=== PATIENT | female | born 1980 | race Hispanic/Latino ===

== ENCOUNTER 2017-06-02 13:29 | Emergency (ER) | payer MEDICAID, SELFPAY ==
[2017-06-02 13:59] LABS: #Basophils 0.1 thou/uL (0.0-0.2); #Eosinphils 0.1 thou/uL (0.0-0.7); #Lymphocytes 2.4 thou/uL (1.20-3.40); #Monocytes 0.6 thou/uL (0.11-0.59); #Neutrophils 6.7 thou/uL (1.40-6.50); %Eosinophils 0.9 % (0.0-10.0); %Lymphocytes 24.5 % (21.0-51.0); %Monocytes 5.9 % (0.0-10.0); %Neutrophils 67.6 % (42.0-75.0); Hemoglobin 13.2 g/dL (12.0-16.0); Mean Corpuscular HGB CONC 33.7 g/dL (32.0-36.0); Mean Corpuscular Hemoglobin 29.6 pg (27.0-31.0); Mean Corpuscular Volume 87.8 fl (81.0-99.0); Mean Platelet Volume 7.9 fL (7.4-10.4); Platelet Count 304 thou/uL (130-400); RBC Distribution Width 12.4 % (11.5-14.5); Red Blood Cell (RBC) Count 4.47 mill/uL (4.20-5.40); White Blood Cell (WBC) Count 9.9 thou/uL (4.8-10.8)
[2017-06-02 14:43] LABS: Bilirubin Negative (Negative); Blood, Urine Moderate (Negative); Clarity CLEAR (Clear); Glucose, Urine (Dipstick) Negative (Negative); Leukocyte Negative (Negative); Nitrite Negative (Negative); Protein, Urine (Dipstick) Negative (Neg-Trace); Urobilinogen 0.2 mg/dL (0.2-1.0)
[2017-06-02 14:52] LABS: Bacteria/HPF Rare-Few HPF (None Seen); Hyaline Casts/LPF 0-3 HYALINE CAST LPF (0-3 Hyaline); Pathc Cast-AUWi Flag 0.67 (0-2.49); Squamous Epithelial 0-3 HPF (0-3); WBC/HPF None Seen HPF (0-3)
[2017-06-02 14:53] LABS: Yeast-AUWi Flag 30.4 (0-25.0)
[2017-06-02 15:05] LABS: Yeast-All Forms None Seen HPF (None Seen)
--- NOTE | 2017-06-02 16:15 | ULT ---
EXAM: PELVIC ULTRASOUND 06/02/17 HISTORY: 5 week patient. Vaginal bleeding, since Wednesday. HCG is 109.72. COMPARISON: None. TECHNIQUE: Transabdominal and endovaginal imaging of the pelvis is performed. The ovaries are interrogated with rojas scale, color flow, doppler imaging with spectral waveform analysis. FINDINGS: The uterus is identified measuring 3.5 x 8.0 x 4.2 cm. Endometrium has a diameter of 0.6 cm. No sonog raphic evidence of a gestational sac, yolk sac, or pole. Right ovary has a normal echotexture measuring 3.6 x 1.6 x 2.4 cm. Right ovary has a normal echotextu re measuring 2.8 x 2.2 x 1,8 cm. There is no free fluid. Incidental Nabothian cyst is noted. OVARIAN DOPPLER: Vascular flow to left and right ovary. IMPRESSION: No sonographic evidence of a gestational sac, yolk sac or pole. Differential considerations inc lude a missed spontaneous versus an early intrauterine versus a sonographically oc cult ectopic . Followup ultrasound and serial beta HCGs are recommended. POS: [facility]
== END 2017-06-02 16:28 | disposition home or self-care (01) ==
LOC: ERS 13:29
DX: O20.9 Hemorrhage in early pregnancy, unspecified (principal); Z3A.01 Less than 8 weeks gestation of pregnancy
CPT/HCPCS: 36415; 76856; 81003; 81015; 84702; 85025

== ENCOUNTER 2018-06-09 12:46 | Emergency (ER) | payer SELFPAY ==
[2018-06-09 13:10] LABS: #Eosinphils 0.2 thou/uL (0.0-0.7); #Lymphocytes 2.7 thou/uL (1.20-3.40); #Monocytes 0.9 thou/uL (0.11-0.59); #Neutrophils 10.4 thou/uL (1.40-6.50); %Basophils 0.3 % (0.0-1.0); %Eosinophils 1.5 % (0.0-10.0); %Lymphocytes 18.7 % (21.0-51.0); %Monocytes 6.4 % (0.0-10.0); %Neutrophils 73.1 % (42.0-75.0); Hemoglobin 12.6 g/dL (12.0-16.0); Mean Corpuscular HGB CONC 32.8 g/dL (32.0-36.0); Mean Corpuscular Hemoglobin 28.9 pg (27.0-31.0); Mean Corpuscular Volume 88.2 fL (78.0-98.0); Mean Platelet Volume 7.7 fL (7.4-10.4); Platelet Count 303 thou/uL (130-400); RBC Distribution Width 12.6 % (11.5-14.5); Red Blood Cell (RBC) Count 4.34 mill/uL (4.20-5.40); White Blood Cell (WBC) Count 14.2 thou/uL (4.8-10.8)
[2018-06-09 13:59] LABS: Bilirubin Negative (Negative); Blood, Urine Trace (Negative); Clarity CLEAR (Clear); Glucose, Urine (Dipstick) Negative (Negative); Leukocyte Negative (Negative); Nitrite Negative (Negative); Protein, Urine (Dipstick) Negative (Neg-Trace); Specific Gravity, Urine 1.007 (1.002-1.036); Urobilinogen 0.2 mg/dL (0.2-1.0); pH, Urine 5.5 (5.0-9.0)
[2018-06-09 14:00] LABS: Bacteria/HPF None Seen HPF (None Seen); Hyaline Casts/LPF 0-3 HYALINE CAST LPF (0-3 Hyaline); Pathc Cast-AUWi Flag 0.29 (0-2.49); Squamous Epithelial 0-3 HPF (0-3); WBC/HPF None Seen HPF (0-3)
--- NOTE | 2018-06-09 14:48 | ULT ---
ULTRASOUND PELVIC TRANSVAGINAL WITH DOPPLER: Date: 06/09/18 HISTORY: Vaginal bleeding. COMPARISON: Ultrasound pelvis dated 06/02/18. FINDINGS: Real-time Dinh scale and color Doppler and spectral analysis of pelvis performed transabdominal and t ransvaginal approach. The patient's HCG is noted to 5,180, per the technologist. Uterus measures 9.1 x 4.0 x 5.9 cm. Endometrial thickness measures 1.0 cm. No intrauterine gestationa l sac is appreciated. Right ovary measures 4.3 x 3.5 x 2.8 cm, with a 2.5 cm corpus luteal cyst. Left ovary measures 2.8 x 2.4 x 1.4 cm. No intrauterine is visualized. IMPRESSION: With the HCG over 5,000, this is a of unknown location. No intrauterine is apprec iated. Close follow-up HCG and ultrasound recommended. POS: [facility]
--- NOTE | 2018-06-09 16:54 | PDOC.EVN ---
Event Note - Event Note Event Note: OBGYN Faculty Note: ED phone call: I was just contacted (about 10 minutes ago) by the Resident in the ED, under Dr Pozo. Ms Johnston is a 37 yo with on/off VB for last 3 days with EGA of 5 weeks by her LMP with a BHCG of 5000. Sono with no IUP and possible CL ovarian cyst. No free fluid in sono Lab: RH pos, HCT 38 DX is of unknown location. As EGA is only 5 weeks by LMP, and no prior ectopic HX (one term CS and one prior SAB at 5 weeks), and as hemodynamically stable, I have requested follow up in 24 hours with ANY available OBGYNs ([facility], [facility], etc). Case reviewed on the phone with the resident. Evaluating MD felt patient was stable and did not require urgent eval by me at this time. case noted.
== END 2018-06-09 17:24 | disposition home or self-care (01) ==
LOC: ERS 12:46
DX: O36.80X0 Pregnancy with inconclusive fetal viability, not applicable or unspecified (principal); Z3A.01 Less than 8 weeks gestation of pregnancy
CPT/HCPCS: 36415; 76856; 81003; 81015; 84702; 85025; 86900; 86901

== ENCOUNTER 2018-06-28 08:11 | Outpatient (CLI) | payer OTHER ==
--- NOTE | 2018-06-28 10:24 | MRI ---
MRI PELVIS WITHOUT CONTRAST MRI PELVIC WITHOUT CONTRAST: HISTORY: Evaluate for interstitial versus an angular . COMPARISON: Ultrasound 06/09/2018. FINDINGS: There is a small posterior fundal fibroid which is subsclerosal measuring a centimeter in size. The uterus has an arcuate formation. There is a maternal right-sided angular . No interstitial . The does ext end into the normal endometrial cavity. There are a few nabothian cysts of the cervix. There appears to be an anterior lower uterine C-secti on scar separate from the intrauterine . Normal-appearing right ovarian cysts are present. No significant free fluid in the pelvis. IMPRESSION: Arcuate uterus with a right angular extending into the endometrial cavity. No interstitial . POS: [facility]
== END 2018-06-28 08:12 | disposition home or self-care (01) ==
LOC: MRI 08:11
PROVIDERS: ATTEND Obstetrics & Gynecology
DX: Z34.90 Encounter for supervision of normal pregnancy, unspecified, unspecified trimester (principal); Z3A.00 Weeks of gestation of pregnancy not specified
CPT/HCPCS: 72195

== ENCOUNTER 2019-01-12 04:56 | Inpatient (IN) | payer OTHER ==
--- NOTE | 2019-01-11 20:29 | PDOC.LDHP ---
Labor and Delivery H&P Chief complaint: scheduled section HPI: 38 yo @ 36w0d by 5 week CRL who presents for RCS due to right Angular with arcuate uterus. and prior CS x1. Pt received BMTZ course for FLM Current gestational age (weeks): 36 Due date: 02/09/19 Dating criteria: first trimester ultrasound Grav: 3 Para: 1 OB History Details: 1 term CS 1 SAB Current complications: other (Right angular Arcuate uterus) Abnormal US findings: Yes (Angular ) Past Medical History: Denies Current medications: pre-natalia vitamins Previous surgical history: low tranverse CS Allergies/Adverse Reactions: Allergies Allergy/AdvReac Type Severity Reaction Status Date / Time No Known Allergies Allergy Verified 01/12/19 05:39 Social history: none - Physical Exam Vital signs reviewed and normal: yes General: NAD Heart: RRR Lungs: nonlabored breathing Abdomen: gravid Extremeties: no edema FHT: category 1 (150s, mod kimberly, +accles, no decels) [place] contractions every: no ctx - OB Labs Blood type: O RH: positive Antibody Screen: negative HIV: negative RPR: negative HEPSAg: negative 1 hour GCT: negative GBS: negative Urine drug screen: negative Rubella: immune Additional Labs: NIPT and msAFP wnl Carrier screening wnl - Assessment 36w0d IUP Right angular with arcuate uterus CSx1 AMA Anemia - Plan Plan: to OR for section, informed consent obtained, anesthesia consult for pain management
[2019-01-12] MEDS ORDERED: Acetaminophen 500 MG TAB PO PRN (05:18)
[2019-01-12] MEDS ORDERED: Ondansetron PF 4 MG/2 ML Vial IVP PRN ×2 (05:18→08:49)
[2019-01-12] MEDS ORDERED: hydrALAZINE 20 MG/ML VIAL SLOW IVP PRN ×2 (05:18→11:30)
[2019-01-12] MEDS ORDERED: Promethazine HCl 25 MG/ML VIAL IM PRN ×2 (05:18→08:49)
[2019-01-12] MEDS ORDERED: Butorphanol Tartrate 1 MG/ML VIAL SLOW IVP PRN (05:18)
[2019-01-12 05:37] VITALS: BMI 32.3
[2019-01-12] MEDS ORDERED: Bicitra 30 ML UDCUP PO SCH (05:45)
[2019-01-12] MEDS ORDERED: CEFAZOLIN 2 GM in Premix Bag 1 BAG IVPB SCH (05:45)
[2019-01-12] MEDS: Lactated Ringer's 1,000 ML IV SCH ×2 (05:46→17:24)
[2019-01-12 05:54] LABS: Hemoglobin 11.2 g/dL (12.0-16.0); Mean Corpuscular HGB CONC 34.2 g/dL (32.0-36.0); Mean Corpuscular Hemoglobin 27.8 pg (27.0-31.0); Mean Corpuscular Volume 81.3 fL (78.0-98.0); Mean Platelet Volume 9.1 fL (7.4-10.4); Platelet Count 238 thou/uL (130-400); RBC Distribution Width 14.7 % (11.5-14.5); Red Blood Cell (RBC) Count 4.04 mill/uL (4.20-5.40); White Blood Cell (WBC) Count 12.3 thou/uL (4.8-10.8)
[2019-01-12 06:35] LABS: HBSAg Index 0.15 S/CO (0-0.99); HIV (1/2) Antibody/Antigen Non-Reactive (NonReactive); HIV 1/2 INDEX 0.07 S/CO (<1.00); Hep B Surf Ag Non-Reactive S/CO (NonReactive)
[2019-01-12] MEDS ORDERED: MORPHINE 5 MG/10 ML PF VIAL ONE (07:14)
[2019-01-12] MEDS ORDERED: Oxytocin 10 UNITS/ML VIAL ONE (07:15)
[2019-01-12] MEDS ORDERED: ePHEDrine/0.9% NaCl/PF SYRINGE 50 mg/10 ml ONE (07:15)
[2019-01-12] MEDS ORDERED: Ondansetron PF 4 MG/2 ML Vial ONE ×2 (07:15→13:12)
[2019-01-12 07:41] LABS: Syphilis Antibody Nonreactive (Nonreactive); Syphilis Antibody Index 0.02 S/CO (<1.00 Non-Reactive)
--- NOTE | 2019-01-12 08:42 | PDOC.OPDEL ---
OB Operative/Delivery Note Delivery Dr/Surgeon: Jeny Jenkins DO Assist: Jagdeep Rogers MD Pre-Delivery Diagnosis: scheduled section (36 week IUP Angular Prior CS x1) Procedure/Post Delivery Dx: repeat low transverse CS Weeks gestation: 36 Anesthesia: spinal - Findings A Sex: male - 1 min: 8 - 5 min: 8 - Additional Findings/Plan Placenta delivered: spontaneous findings: low transverse hysterotomy without extension, normal tubes, normal ovaries, other (Thin posterior myometrium near initial implantation site. Velementous cord insertion on placenta) Estimated blood loss: QBL 505 cc Compilations/Other Findings: None Post delivery plan: routine recovery (Dictation # [id number])
[2019-01-12] MEDS ORDERED: HYDROmorphone 2 MG/ML VIAL SLOW IVP PRN (08:48)
[2019-01-12] MEDS ORDERED: L&D-Morphine 4 MG/ML VIAL SLOW IVP PRN (08:48)
[2019-01-12] MEDS ORDERED: Meperidine HCl/PF 25 MG/ML VIAL SLOW IVP PRN (08:48)
[2019-01-12] MEDS ORDERED: Ondansetron HCl/PF 4 MG/2 ML Vial IVP PRN (08:48)
[2019-01-12] MEDS ORDERED: Promethazine HCl 25 MG SUPP PR PRN (08:49)
[2019-01-12] MEDS ORDERED: Naloxone HCl 0.4 mg/ml Vial IVP PRN ×2 (08:49)
[2019-01-12] MEDS ORDERED: Naloxone HCl 0.4 mg/ml Vial IV PRN (08:49)
[2019-01-12] MEDS ORDERED: diphenhydrAMINE 50 MG/ML VIAL IVP PRN (08:49)
[2019-01-12] MEDS ORDERED: Communication Order-Pharmacy FS SCH (09:00)
[2019-01-12] MEDS ORDERED: Ketorolac Tromethamine 30 MG/ML VIAL IVP SCH (09:00)
[2019-01-12] MEDS ORDERED: Meperidine HCl/PF 25 MG/ML VIAL ONE (09:16)
[2019-01-12] MEDS ORDERED: Methylergonovine 0.2 MG/ML VIAL IM PRN (11:30)
[2019-01-12] MEDS ORDERED: Misoprostol 200 MCG TAB PR PRN (11:30)
[2019-01-12] MEDS ORDERED: Acetaminophen 325 MG TAB PO PRN (11:30)
[2019-01-12] MEDS ORDERED: diphenhydrAMINE 25 MG CAP PO PRN (11:30)
[2019-01-12] MEDS ORDERED: Lanolin Ointment 7 GM TUBE TOP PRN (11:30)
[2019-01-12] MEDS: Ketorolac Tromethamine 30 MG/ML VIAL IVP PRN ×2 (11:50→20:26)
[2019-01-12] MEDS ORDERED: Morphine 2 MG/ML SYRINGE SLOW IVP SCH ×2 (13:00→15:45)
[2019-01-12] MEDS ORDERED: ePHEDrine 50 MG/ML VIAL ONE (13:12)
[2019-01-12] MEDS: Simethicone Chewable 80 MG TAB PO PRN (15:49)
[2019-01-12] MEDS: Ibuprofen 800 MG TAB PO SCH (15:49)
[2019-01-12] MEDS: HYDROcodone/Acetaminophen 5/325 mg Tablet PO PRN (20:24)
[2019-01-12] MEDS: Docusate Calcium (SURFAK) 240 MG CAP PO SCH (20:24)
[2019-01-13] MEDS: HYDROcodone/Acetaminophen 5/325 mg Tablet PO PRN ×5 (00:29→21:37)
[2019-01-13] MEDS: Ferrous Sulfate 325 MG TAB PO SCH ×3 (00:30→19:07)
[2019-01-13] MEDS: Lactated Ringer's 1,000 ML IV SCH ×5 (00:36→19:54)
[2019-01-13] MEDS: Ibuprofen 800 MG TAB PO SCH ×4 (00:37→21:02)
[2019-01-13 05:17] LABS: #Monocytes 0.9 thou/uL (0.11-0.59); #Neutrophils 11.7 thou/uL (1.40-6.50); %Basophils 0.2 % (0.0-1.0); %Eosinophils 0.3 % (0.0-10.0); %Lymphocytes 13.7 % (21.0-51.0); %Monocytes 5.8 % (0.0-10.0); Hemoglobin 10.2 g/dL (12.0-16.0); Mean Corpuscular HGB CONC 33.7 g/dL (32.0-36.0); Mean Corpuscular Hemoglobin 27.7 pg (27.0-31.0); Mean Corpuscular Volume 82.1 fL (78.0-98.0); Mean Platelet Volume 9.3 fL (7.4-10.4); Platelet Count 201 thou/uL (130-400); RBC Distribution Width 14.6 % (11.5-14.5); Red Blood Cell (RBC) Count 3.68 mill/uL (4.20-5.40); White Blood Cell (WBC) Count 14.7 thou/uL (4.8-10.8)
[2019-01-13] MEDS: Prenatal Vitamin 1 TAB PO SCH (09:08)
[2019-01-13] MEDS: Docusate Calcium (SURFAK) 240 MG CAP PO SCH ×2 (09:08→21:01)
--- NOTE | 2019-01-13 09:20 | OP ---
DATE OF PROCEDURE: 01/12/2019 PREOPERATIVE DIAGNOSES: 1. Thirty-six week, zero day intrauterine . 2. Angular . 3. Arcuate uterus. 4. Previous delivery x1. 5. Advanced maternal age. POSTOPERATIVE DIAGNOSES: 1. Thirty-six week, zero day intrauterine . 2. Angular . 3. Arcuate uterus. 4. Previous delivery x1. 5. Advanced maternal age. PROCEDURE PERFORMED: Repeat low-transverse delivery via Pfannenstiel skin incision. SURGEON: Jeny Jenkins DO OPERATION AGENT: Jagdeep Rogers MD COMPLICATIONS: None. ANESTHESIA: Spinal. QBL: 505 mL. IV FLUIDS: 1100 mL. URINARY OUTPUT: 400 mL. INDICATIONS FOR PROCEDURE: Ms. Brittni Kumar is a 38-year-old, G3, P1, at 36 weeks and 0 days, who presents for repeat delivery. Her antepartum course has been complicated by an angular , arcuate uterus, previous delivery x1, and advanced maternal age. Due to the angular and risk for uterine rupture if labor occurs, Maternal Medicine recommended delivery between 36 to 37 weeks. The patient was given betamethasone course for lung maturity and was scheduled for repeat delivery at 36 weeks gestation. FINDINGS: Dense scar along the fascia and rectus muscle. Thin adhesions from the dome of the bladder to the lower uterine segment. Thin lower uterine segment. Clear amniotic fluid. Viable male infant in cephalic presentation. Apgars 8/8/9. Velamentous cord insertion noted on placenta. Uterus with a thin posterior myometrium noted, which is where the initial implantation site was along the right aspect of the uterus. Otherwise, normal in appearance. Thin myometrium posterior aspect of the uterus. Arcuate uterus. DESCRIPTION OF PROCEDURE: The patient was brought to the operating room. She was placed under spinal anesthesia. She was placed in supine position with a leftward tilt. She was given 2 g of Ancef for surgical prophylaxis. She was prepped and draped in sterile fashion. An official time-out was performed. Anesthesia was assessed and proven to be adequate. The previous Pfannenstiel scar was removed, which was excised. The incision was carried down to the level of the fascia. The fascia was then incised and extended bilaterally using Jerez scissors. The superior aspect of the fascial incision was grasped using Amelia clamps and dissected free from the underlying rectus abdominis muscles. Then same was performed to the inferior aspect of fascial incision. There was some thick adhesions from the fascia to the rectus abdominis muscles. The rectus was then grasped and elevated using Allis clamps. The midline was incised using the scalpel due to the dense scar tissue until the peritoneal cavity was identified. The incision was then extended inferiorly using Jerez scissors in multiple layers, and then, the incision was extended using blunt dissection. There were thin adhesions to the bladder, which were both sharply and bluntly dissected. The Bob O retractor was then placed into the abdomen. A low-transverse hysterotomy was made using the scalpel and extended using blunt and sharp dissection. The amniotic membranes were ruptured and clear amniotic fluid. Infant was delivered in cephalic presentation. The infant's cord was clamped and cut. The was handed to the waiting neonatology team. Cord blood was obtained. The placenta was then delivered manually intact noted in posterior location. On the placenta, it was noted to have a velamentous cord insertion, which was not diagnosed antenatally and the uterus was then exteriorized from the abdomen for evaluation due to the angular . The myometrium on the posterior aspect was noted to be very thin, especially along the right aspect of the uterus. She had a small fibroid as well on the fundus of the uterus approximately 2 cm. The uterine cavity was also palpated and appreciated arcuate shape, which was documented on MRI. The uterus was then cleared of all clot and debris. The uterus placed back into the abdomen. The hysterotomy was closed in a running locking fashion using one Monocryl suture. The pelvis was irrigated and cleared of all clot and debris. The ovaries and fallopian tubes had been evaluated and appeared normal. The Bob O retractor was then removed from the abdomen. The peritoneum was closed in a running fashion using 3-0 chromic. The rectus abdominis muscles were evaluated and hemostatic with the use of the Bovie. The fascia was closed in a running fashion using 0 PDS. The subcutaneous layer was copiously irrigated and hemostatic. with the Bovie. The subcutaneous layer was closed using 3-0 Vicryl and the skin was closed using 4-0 Monocryl and Dermabond. The patient tolerated the procedure well. There were no complications. All counts were correct x3. The infant was then transferred to the nursery, however, is being monitored due to initial lack of respiratory drive. The mother will be transferred to routine recovery. Job ID: [id number] MTDD
[2019-01-13] MEDS: Simethicone Chewable 80 MG TAB PO PRN ×2 (11:08→21:02)
--- NOTE | 2019-01-13 12:20 | PDOC.PP ---
Post Progress Note Post Day #: 1 Subjective: Moderate pain improved with oral meds. Minimal lochia. Pumping- in NICU. Voiding. PO intake tolerated: yes Flatus: yes Ambulation: yes Vital Signs (12 hours) Temp Pulse Resp BP Pulse Ox 01/13/19 11:21 98.3 F 84 20 115/66 01/13/19 08:07 98.8 F 88 20 118/72 95 01/13/19 08:00 95 01/13/19 03:45 98.9 F 67 16 116/72 01/13/19 00:25 98.6 F 71 16 117/61 Weight Weight 200 lb - Physical Examination General: NAD Cardiovascular: RRR Respiratory: non-labored breathing Abdominal: no distention, appropriately TTP Fundus firm & at: below umbilicus Extremities: negative homans (B) Skin: CS incision dry & intact, no rash Neurological: no gross focal deficits Psychiatric: A&Ox3, normal affect Result Diagrams: 01/13/19 04:52 Additional Labs: Post Labs Blood Type O POSITIVE 01/12/19 05:42 Hep Bs Antigen Non-Reactive S/CO (NonReactive) 01/12/19 05:42 (1) delivery delivered Code(s): O82 - ENCOUNTER FOR DELIVERY WITHOUT INDICATION Status: Acute (2) Anemia Code(s): D64.9 - ANEMIA, UNSPECIFIED Status: Acute Qualifiers: Other causes of anemia: acute posthemorrhagic - Assessment/Plan PPD1 VSSAF Fe supplement. Continue PP care plan for d/c 1-2 days, infant in NICU currently due to TTN/RDS due to prematurity
[2019-01-14] MEDS: HYDROcodone/Acetaminophen 5/325 mg Tablet PO PRN ×5 (01:59→20:48)
[2019-01-14] MEDS: Ibuprofen 800 MG TAB PO SCH ×3 (05:00→21:17)
--- NOTE | 2019-01-14 07:30 | PDOC.PP ---
Post Progress Note Post Day #: 2 Subjective: Doing well this morning, no complaints. Pain well controlled. PO intake tolerated: yes Flatus: yes Ambulation: yes Vital Signs (12 hours) Temp Pulse Resp BP Pulse Ox 01/14/19 05:00 98.6 F 76 16 131/75 01/13/19 23:00 98.7 F 80 16 127/66 01/13/19 20:51 99.1 F 86 16 115/68 95 Weight Weight 200 lb - Physical Examination General: NAD Respiratory: non-labored breathing Abdominal: lochia (normal), no distention, appropriately TTP Fundus firm & at: below umbilicus Skin: CS incision dry & intact, no rash Neurological: no gross focal deficits Psychiatric: A&Ox3, normal affect Result Diagrams: 01/13/19 04:52 Additional Labs: Post Labs Blood Type O POSITIVE 01/12/19 05:42 Hep Bs Antigen Non-Reactive S/CO (NonReactive) 01/12/19 05:42 (1) Angular Code(s): O00.80 - OTHER ECTOPIC WITHOUT INTRAUTERINE Status: Acute (2) delivery delivered Code(s): O82 - ENCOUNTER FOR DELIVERY WITHOUT INDICATION Status: Acute - Assessment/Plan Continue routine postop care. Baby in NICU, d/c tomorrow.
[2019-01-14] MEDS: Prenatal Vitamin 1 TAB PO SCH (10:01)
[2019-01-14] MEDS: Docusate Calcium (SURFAK) 240 MG CAP PO SCH ×2 (10:04→21:17)
[2019-01-14] MEDS: Ferrous Sulfate 325 MG TAB PO SCH ×2 (10:05→21:16)
[2019-01-14] MEDS: Lactated Ringer's 1,000 ML IV SCH ×2 (14:20→21:17)
--- NOTE | 2019-01-15 01:31 | PDOC.PP ---
Post Progress Note Post Day #: 3 Subjective: No overnight events. Feeling well. Pain well controlled with meds. Ambulating. is going well. PO intake tolerated: yes Flatus: yes Ambulation: yes Vital Signs (12 hours) Temp Pulse Resp BP Pulse Ox 01/14/19 21:05 98.2 F 101 H 20 113/61 96 01/14/19 16:09 98.3 F 86 14 126/70 Weight Weight 90.718 kg - Physical Examination General: NAD Cardiovascular: no m/r/g, RRR Respiratory: clear to auscultation bilaterally, non-labored breathing Abdominal: + bowel sounds, appropriately TTP Fundus firm & at: below umbilicus Skin: CS incision dry & intact Neurological: no gross focal deficits Psychiatric: A&Ox3, normal affect Result Diagrams: 01/13/19 04:52 Additional Labs: Post Labs Blood Type O POSITIVE 01/12/19 05:42 Hep Bs Antigen Non-Reactive S/CO (NonReactive) 01/12/19 05:42 - Assessment/Plan 38yo delivered via rLTCS at 36wks sIUP, delivered - Continue routine PP care - D/c home today Sumaya Del Rosario MD PGY-2 Pt was discussed with Dr Hannah who agrees with the documentation and plan Addendum - Attending - Attending Attestation Date/Time: 01/15/19826 I personally evaluated the patient and discussed the management with Dr. Del Rosario. I agree with the Assessment and Plan documented above.
[2019-01-15] MEDS: Ibuprofen 800 MG TAB PO SCH ×3 (05:48→21:38)
[2019-01-15] MEDS: Lactated Ringer's 1,000 ML IV SCH ×3 (09:25→21:21)
[2019-01-15] MEDS: Prenatal Vitamin 1 TAB PO SCH (09:25)
[2019-01-15] MEDS: Docusate Calcium (SURFAK) 240 MG CAP PO SCH ×2 (09:25→21:38)
[2019-01-15] MEDS: HYDROcodone/Acetaminophen 5/325 mg Tablet PO PRN ×2 (09:26→17:56)
[2019-01-15] MEDS: Ferrous Sulfate 325 MG TAB PO SCH ×2 (09:28→21:21)
--- NOTE | 2019-01-15 12:24 | PDOC.EVN ---
Event Note - Event Note Event Note: Notified that baby will stay until tomorrow to recheck "car seat test". We will cancel DC order tonany and nani for possible DC tomorrow
[2019-01-16] MEDS: HYDROcodone/Acetaminophen 5/325 mg Tablet PO PRN (00:21)
[2019-01-16] MEDS: Ibuprofen 800 MG TAB PO SCH (05:22)
[2019-01-16] MEDS: Lactated Ringer's 1,000 ML IV SCH (05:23)
--- NOTE | 2019-01-16 07:48 | PDOC.PP ---
Post Progress Note Post Day #: 4 Subjective: Pt doing well this am. No symptoms or complaints. Minimal lochai. No pain at this time. Baby is going to repeat car set test this am with plan to be discharged if passed. PO intake tolerated: yes Flatus: yes Ambulation: yes Vital Signs (12 hours) Temp Pulse Resp BP Pulse Ox 01/16/19 05:26 98.1 F 85 20 135/63 01/15/19 23:41 98.4 F 91 20 139/83 01/15/19 20:55 97.8 F 92 20 121/66 99 Weight Weight 200 lb - Physical Examination General: NAD Respiratory: non-labored breathing Abdominal: + bowel sounds, lochia, no distention, appropriately TTP Fundus firm & at: below umbilicus Extremities: negative homans (B) Skin: CS incision dry & intact, no rash Neurological: no gross focal deficits Psychiatric: A&Ox3, normal affect Result Diagrams: 01/13/19 04:52 Additional Labs: Post Labs Blood Type O POSITIVE 01/12/19 05:42 Hep Bs Antigen Non-Reactive S/CO (NonReactive) 01/12/19 05:42 (1) Angular Code(s): O00.80 - OTHER ECTOPIC WITHOUT INTRAUTERINE Status: Acute (2) delivery delivered Code(s): O82 - ENCOUNTER FOR DELIVERY WITHOUT INDICATION Status: Acute - Assessment/Plan PT doing well PPD 4. Plan to d/c this am if baby passes car seat test.
[2019-01-16 08:00] VITALS: BP 122/71; TEMP 98.3
[2019-01-16] MEDS: Docusate Calcium (SURFAK) 240 MG CAP PO SCH (09:45)
[2019-01-16] MEDS: Prenatal Vitamin 1 TAB PO SCH (09:45)
[2019-01-16] MEDS: Ferrous Sulfate 325 MG TAB PO SCH (09:46)
== END 2019-01-16 13:45 | disposition home or self-care (01) | DRG 787 ==
LOC: L&D 04:56 → 3SW 11:02 → EDSTATUS 02-09 07:07
PROVIDERS: ADMIT Obstetrics & Gynecology; ATTEND Obstetrics & Gynecology
PROC: 10D00Z1 Extraction of Products of Conception, Low, Open Approach (ICD-10-PCS; principal; 2019-01-12)
DX: O34.211 Maternal care for low transverse scar from previous cesarean delivery (principal); D62 Acute posthemorrhagic anemia; Z3A.36 36 weeks gestation of pregnancy; Z37.0 Single live birth; O34.03 Maternal care for unspecified congenital malformation of uterus, third trimester; Q51.810 Arcuate uterus; O99.02 Anemia complicating childbirth
CPT/HCPCS: 36415; 51702; 85025; 85027; 86780; 86850; 86900; 86901; 87340; 87389; 88307; J0690; J1885; J2175; J2270; J2274; J2310; J2405; J2590; J3490; Q0163

== ENCOUNTER 2019-02-23 04:33 | Emergency (ER) | payer MEDICAID, OTHER ==
[2019-02-23] MEDS ORDERED: Ondansetron PF 4 MG/2 ML Vial ONE (04:59)
[2019-02-23] MEDS ORDERED: Morphine 4 MG/ML VIAL ONE (04:59)
[2019-02-23 05:11] LABS: Bilirubin Negative (Negative); Blood, Urine Negative (Negative); Clarity Clear (Clear); Glucose, Urine (Dipstick) Normal (Negative); Leukocyte Negative Leu/uL (Negative); Nitrite Negative (Negative); Protein, Urine (Dipstick) Negative (Neg-Trace); Urobilinogen Normal mg/dL (Less than 2)
[2019-02-23 05:15] LABS: #Eosinphils 0.1 thou/uL (0.0-0.7); #Lymphocytes 1.5 thou/uL (1.20-3.40); #Monocytes 0.6 thou/uL (0.11-0.59); %Basophils 0.1 % (0.0-1.0); %Eosinophils 0.8 % (0.0-10.0); %Lymphocytes 13.1 % (21.0-51.0); Hemoglobin 12.6 g/dL (12.0-16.0); Mean Corpuscular HGB CONC 32.4 g/dL (32.0-36.0); Mean Corpuscular Hemoglobin 25.6 pg (27.0-31.0); Mean Corpuscular Volume 79.2 fL (78.0-98.0); Platelet Count 251 thou/uL (130-400); RBC Distribution Width 14.2 % (11.5-14.5); Red Blood Cell (RBC) Count 4.91 mill/uL (4.20-5.40); White Blood Cell (WBC) Count 11.1 thou/uL (4.8-10.8)
[2019-02-23 05:24] LABS: Pregnancy Test - Urine (BHCG) Negative (Negative); Pregu Control Background? CLEAR/WHITE (CLR/WHITE); Pregu Control Bar Appear? YES (CONTROL BAR); Specific Gravity 1.007 (1.002-1.036)
[2019-02-23 05:38] LABS: ALT (SGPT) 13 U/L (8-55); AST (SGOT) 12 U/L (5-34); Albumin 4.2 g/dL (3.5-5.0); Alkaline Phosphatase 139 U/L (40-110); Anion Gap 13 mmol/L (10-20); BUN (Urea Nitrogen) 15 mg/dL (7.0-18.7); Bilirubin, Total 0.4 mg/dL (0.2-1.2); Calc. Creatinine Clearance 0 mL/min (70-130); Calcium 8.8 mg/dL (7.8-10.44); Carbon Dioxide 26 mmol/L (22-29); Chloride 104 mmol/L (98-107); Estimated GFR-MDRD 90; Globulin 3.1 g/dL (2.4-3.5); Glucose 97 mg/dL (70-105); Lipase 19 U/L (8-78); Potassium 3.9 mmol/L (3.5-5.1); Protein, Total 7.3 g/dL (6.0-8.3); Sodium 139 mmol/L (136-145)
--- NOTE | 2019-02-23 07:45 | ULT ---
PRELIMINARY REPORT/[facility]/EMERGENCY AFTER HOURS PROCEDURE: PROCEDURE INFORMATION: Exam: US Abdomen Limited, Right Upper Quadrant Exam date and time: 02/23/2019 5:53 AM Clinical history: 38 years old, female; Nausea; Abdominal pain; Localized; Right upper quadrant(ruq) TECHNIQUE: Imaging protocol: Real-time ultrasound of the abdomen with image documentation. Examination was focus ed on the right upper quadrant. COMPARISON: No relevant prior studies available. FINDINGS: Liver: The liver appears mildly enlarged, with right lobe length of about 21 cm. No definite/signific ant focal hepatic abnormality. Gallbladder: No cholelithiasis. The gallbladder appears somewhat distended, transverse diameter up to 4.5-5.0 cm. Gallbladder wall thickness upper range of normal, about 3 mm. No definite pericholecystic fluid. Tech nologist states patient was tender over the gallbladder region during scanning. Common bile duct: No biliary dilation, common duct measures 4.8 mm. Pancreas: Visible pancreas unremarkable. Right kidney: Images of the right kidney show no hydronephrosis. IMPRESSION: 1. Somewhat distended gallbladder, see additional details above. 2. Gallbladder wall thickness upper range of normal. 3. No cholelithiasis or biliary tree dilation. 4. Mild hepatomegaly. 5. Other findings discussed above. Thank you for allowing us to participate in the care of your patient. Dictated and Authenticated by: Buddy Horowitz MD 02/23/2019 6:30 AM Central Time ([place] & [place]) FINAL REPORT: EMERGENT AFTER HOURS RIGHT UPPER QUADRANT ULTRASOUND: HISTORY: Nausea and right upper quadrant abdominal pain. IMPRESSION: 1. Hepatomegaly with the liver measuring 20.9 cm in craniocaudal dimensions. 2. Gallbladder distention with the gallbladder measuring 11.8 cm in length. No gallbladder calculus i s seen, and there is no pericholecystic fluid. The common duct is normal in caliber measuring 0.5 cm in diameter. 3. Findings are in agreement with the preliminary report by [facility]. Transcribed Date/Time: 02/23/2019 7:51 AM
--- NOTE | 2019-02-23 07:50 | CT ---
PRELIMINARY REPORT/[facility]/EMERGENCY AFTER HOURS PROCEDURE: PROCEDURE INFORMATION: Exam: CT Abdomen And Pelvis With Contrast Exam date and time: 02/23/2019 6:41 AM Clinical history: 38 years old, female; Abdominal pain; Acute; Prior surgery; Surgery date: <1 month; Surgery type: ; Patient HX: Iv only. F38 presents to the er with C/O abd pain that started at midnight, 5 hours ago. PT reports nausea. Denies fever, vomiting, diarrhea or similar symp toms in the past. PT reports she had a c section 40 days ago that went normally and they have not had a follow up appointment yet. PT reports she is not breast feeding. TECHNIQUE: Imaging protocol: Computed tomography of the abdomen and pelvis with intravenous contrast. Radiation optimization: All CT scans at this facility use at least one of these dose optimization techniques: automated exposure control; mA and/or kV adjustment per patient size (includes targeted exams where dose is matched to clinical indication); or iterative reconstruction. Contrast material: ISOVUE 370; Contrast volume: 100 ml; Contrast route: IV; COMPARISON: US Gallbladder RUQ 02/23/2019 5:53 AM FINDINGS: Lungs: The lung bases are clear. Liver: There is fatty infiltration of the liver. The liver appears somewhat enlarged, with right lobe length of 22-23 cm. No definite/significant focal hepatic abnormality. Gallbladder and bile ducts: The gallbladder appears abnormally distended, with transverse diameter of 5 cm. No visible gallstones or other definite gallbladder abnormality by CT. No definite pericholecystic fluid or inflammatory changes. No biliary tree dilation. Pancreas: Unremarkable. Spleen: Unremarkable. Adrenals: Unremarkable. Kidneys and ureters: Unremarkable. Stomach and bowel: Several proximal small bowel loops are fluid-filled and borderline prominent in si ze, but the overall appearance is not suggestive of significant small bowel obstruction. This appearance could be secondary to some form of gastroenteritis. Please correlate clinically. If there is clinical suspicion for small bowel obstruction, follow-up may be helpful to exclude progr ession. Possibility of slightly thickened mucosa/wall in the distal antrum of the stomach. This is a nonspecific appearance, and could be transient on CT, but could also represent evidence for gastrit is or peptic ulcer disease. Please correlate clinically. There are no CT findings to strongly suggest diverticulitis. Appendix: The appendix is visualized and appears normal. Intraperitoneal space: No free air, or ascit es. Vasculature: No evidence for abdominal aortic aneurysm. Lymph nodes: No retroperitoneal adenopathy. Bladder: Unremarkable as visualized. Reproductive: Small amount of cul-de-sac fluid. No definite ovarian/adnexal cyst or mass by CT. Bones/joints: No significant acute finding. Soft tissues: No significant acute finding. IMPRESSION: 1. Distended gallbladder, no visible gallstones by CT. See above. 2. Several proximal small bowel loops are fluid-filled and borderline prominent in size. This appearance could be secondary to some form of gastroenteritis. See above. 3. No free air or other significant bowel distention. 4. Normal appendix 5. Possible thickened mucosa/wall in the distal stomach, see above discussion. 6. Small amount of cul-de-sac fluid. No definite ovarian/adnexal cyst or mass by CT. 7. Other findings discussed above. Thank you for allowing us to participate in the care of your patient. Dictated and Authenticated by: Buddy Horowitz MD 02/23/2019 7:12 AM Central Time ([place] & [place]) FINAL REPORT EMERGENT AFTER HOURS CT ABDOMEN AND PELVIS WITH IV CONTRAST: HISTORY: Abdominal pain. Distention of the gallbladder on ultrasound exam. IMPRESSION: 1. Enlargement of the liver in craniocaudal dimensions which measures 23 cm. 2. Mild gallbladder distention which was noted on right upper quadrant ultrasound exam performed just prior to this exam. 3. Fluid-filled loops of proximal small bowel which also demonstrate mild wall thickening. Findings c ould be related to enteritis, but this is a nonspecific finding. 4. The stomach is incompletely distended. 5. No CT evidence of appendicitis. 6. Trace amount of free fluid in the cul-de-sac probably physiologic in origin. 7. Mild scarring in the subcutaneous adipose layer anterior pelvis. 8. Findings are agreement with the preliminary report by [facility]. Transcribed Date/Time: 02/23/2019 7:58 AM
== END 2019-02-23 07:29 | disposition home or self-care (01) ==
LOC: ERS 04:33
DX: K82.8 Other specified diseases of gallbladder (principal)
CPT/HCPCS: 74177; 76705; 80053; 81003; 81025; 83690; 85025; 96374; 96375; J2270; J2405

== ENCOUNTER 2020-04-17 09:59 | Outpatient (CLI) | payer OTHER ==
--- NOTE | 2020-04-17 10:52 | ULT ---
ULTRASOUND ABDOMEN LIMITED: (RIGHT UPPER QUADRANT) DATE: 04/17/2020 HISTORY: Right upper quadrant abdominal pain in 39-year-old female FINDINGS: Gallbladder: Single 8 mm mobile gallstone. Normal wall thickness. No sludge identified. No pericholec ystic fluid. No excessive luminal distention. Liver: Normal parenchymal echogenicity. Right kidney: No hydronephrosis. Pancreas: Visualized, with no gross sonographic abnormality identified (although ultrasound is relati vely insensitive for the detection of pancreatic pathology compared to CT and MRI.). Common duct caliber: 5 mm. IMPRESSION: 1) positive for cholelithiasis. 2) no sonographic evidence of cholecystitis.
== END 2020-04-17 10:00 | disposition home or self-care (01) ==
LOC: BICULT 09:59
PROVIDERS: ATTEND Family Medicine
DX: R10.11 Right upper quadrant pain (principal); K80.20 Calculus of gallbladder without cholecystitis without obstruction
CPT/HCPCS: 76705